=== PATIENT | male | born 1945 | race Two or more races ===

== ENCOUNTER 2024-01-12 10:27 | Inpatient (IN) | payer OTHER, MEDICAID ==
[~2024-01-12] VITALS: Ht 170.2 cm; Wt 63.1 kg
[2024-01-12 10:50] VITALS: PULSE 81; RESP 17; O2SAT 95
[2024-01-12 11:31] LABS: Basophils # (auto) 0 10 ^3/uL (0-0.2); Basophils % (auto) 0.2 % (0.0-2.0); Eosinophils # (auto) 0 10 ^3/uL (0-0.8); Eosinophils % (auto) 0.1 % (0.0-7.0); Hematocrit 41.5 % (41.0-53.0); Lymphocytes # (auto) 0.9 10 ^3/uL (0.4-5.4); Lymphocytes % (auto) 9.4 % (10.0-50.0); Mean Corpuscular Hemoglobin 29.7 pg (28.0-32.0); Mean Corpuscular Hgb Conc. 33.6 g/dL (32.0-36.0); Mean Corpuscular Volume 88.3 fL (80.0-100.0); Monocytes # (auto) 0.8 10 ^3/uL (0-1.3); Monocytes % (auto) 8.8 % (0.0-12.0); Neutrophils # (auto) 7.6 10 ^3/uL (1.6-8.6); Neutrophils % (auto) 81.5 % (37.0-80.0); Nucleated Red Blood Cells % 0.1 %; Red Blood Cells 4.69 10^6/uL (4.5-5.90); Red Cell Distribution Width 14.3 % (11.8-14.3); White Blood Cell 9.4 10^3/uL (4.4-10.8)
[2024-01-12 11:39] LABS: Chloride 99 mmol/L (98-107); Potassium 3.9 mmol/L (3.5-5.1); Sodium 137 mmol/L (136-145)
[2024-01-12 11:40] LABS: Anion Gap 10 (5-15); Carbon Dioxide 28 mmol/L (20-30)
[2024-01-12 11:45] LABS: Glucose 135 mg/dL (74-106)
[2024-01-12 11:46] LABS: BUN/Creatinine Ratio 26.6 (10.0-20.0); Blood Urea Nitrogen 25 mg/dL (9-23)
[2024-01-12 12:02] LABS: Calcium 15.4 mg/dL (8.5-10.1)
[2024-01-12] MEDS ORDERED: ACETAMINOPHEN 325 MG TAB PO PRN (16:30)
[2024-01-12] MEDS ORDERED: DEXTROSE (50%) 50ML SYRG IV PRN (16:30)
[2024-01-12] MEDS ORDERED: NITROGLYCERIN 0.4 MG SL TAB SL PRN (16:30)
[2024-01-12] MEDS: SODIUM CHLORIDE 0.9% 1,000 ML IV ONE (16:30)
[2024-01-12] MEDS ORDERED: MORPHINE SULFATE INJ 2 MG/ml SYRG IV PRN (16:30)
[2024-01-12] MEDS ORDERED: ENOXAPARIN SOD 100 MG/1 ML SYRINGE SC ONE (16:30)
[2024-01-12 16:48] LABS: Triglycerides 137 mg/dL (< 150)
[2024-01-12 16:49] LABS: LDL Cholesterol 33 mg/dL (< 100)
[2024-01-12 16:50] LABS: Cholesterol 87 mg/dL (< 200); HDL Cholesterol 29 mg/dL (40-59)
[2024-01-12] MEDS: ACCU-CHEK COMFORT CURVE STRIP VI SCH (17:00)
[2024-01-12] MEDS: InsuLIN REG 1unit/0.01ml Soln (100units/ml) SC SCH (17:00)
[2024-01-12 17:30] VITALS: BP 119/67; PULSE 93; RESP 16; TEMP 96.6; O2SAT 94
[2024-01-12] MEDS: SODIUM CHLORIDE 0.9% 500 ML IV ONE (17:30)
[2024-01-12 17:46] VITALS: BP 119/67; PULSE 93; RESP 16; RESP 18; TEMP 96.6; O2SAT 94
[2024-01-12] MEDS ORDERED: METF-372 PO (18:20)
[2024-01-12] MEDS ORDERED: LEVO200T7 PO (18:20)
[2024-01-12] MEDS ORDERED: EMPA1TAB3 PO (18:20)
[2024-01-12] MEDS: ASPirin 81 mg TAB PO ONE (18:22)
[2024-01-12] MEDS: ENOXAPARIN SOD 60 MG/0.6 ML SYRINGE SC ONE (18:22)
[2024-01-12] MEDS: SODIUM CHLORIDE 0.9% 1,000 ML IV SCH (18:24)
[2024-01-12] MEDS ORDERED: FURO1TAB31 PO (18:25)
[2024-01-12] MEDS ORDERED: ERGO1CAP12 PO (18:30)
[2024-01-12 20:00] VITALS: PULSE 86; PULSE 89; RESP 18
[2024-01-12 22:00] VITALS: BP 112/63; PULSE 86; RESP 20; TEMP 97.5; O2SAT 94
[2024-01-13] VITALS (7 sets, daily range): BP systolic 86–126; BP diastolic 55–65; PULSE 72–90; RESP 16–21; TEMP 97.4–98.4; O2SAT 92–97
[2024-01-13 05:08] LABS: Basophils # (auto) 0 10 ^3/uL (0-0.2); Basophils % (auto) 0.2 % (0.0-2.0); Eosinophils # (auto) 0 10 ^3/uL (0-0.8); Hematocrit 37.2 % (41.0-53.0); Hemoglobin 12.8 g/dL (13.5-17.5); Lymphocytes # (auto) 0.7 10 ^3/uL (0.4-5.4); Lymphocytes % (auto) 8.5 % (10.0-50.0); Mean Corpuscular Hemoglobin 30.4 pg (28.0-32.0); Mean Corpuscular Hgb Conc. 34.4 g/dL (32.0-36.0); Mean Corpuscular Volume 88.3 fL (80.0-100.0); Monocytes # (auto) 0.8 10 ^3/uL (0-1.3); Monocytes % (auto) 9.3 % (0.0-12.0); Nucleated Red Blood Cells % 0.1 %; Red Blood Cells 4.21 10^6/uL (4.5-5.90); Red Cell Distribution Width 14.5 % (11.8-14.3); White Blood Cell 8.5 10^3/uL (4.4-10.8)
[2024-01-13] MEDS: ENOXAPARIN SOD 60 MG/0.6 ML SYRINGE SC SCH (05:08)
[2024-01-13 05:18] LABS: Alanine Aminotransferase 24 U/L (7-40); Alkaline Phosphatase 202 U/L (46-116); Anion Gap 9 (5-15); Blood Urea Nitrogen 19 mg/dL (9-23); Carbon Dioxide 26 mmol/L (20-30); Chloride 102 mmol/L (98-107); Glucose 116 mg/dL (74-106); Potassium 3.6 mmol/L (3.5-5.1); Sodium 137 mmol/L (136-145)
[2024-01-13 05:19] LABS: Albumin 3.7 g/dL (3.2-4.8); Aspartate Aminotransferase 53 U/L (13-40); Bilirubin, Total 0.7 mg/dL (0.2-1.0); Total Protein 6.2 g/dL (5.7-8.2)
[2024-01-13] MEDS ORDERED: SIMV40TA18 PO (08:07)
[2024-01-13] MEDS: MAGNESIUM SULFATE 1GM/100ML 100 ML IV SCH (12:05)
[2024-01-13] MEDS: ASPirin 81 mg TAB PO SCH (12:05)
[2024-01-13] MEDS: PAMIDRONATE DISODIUM 90 MG in SOD CHL 0.45% 1,000 ML IV ONE (15:37)
[2024-01-13] MEDS: ATORVASTATIN 20 MG TAB PO SCH (21:21)
[2024-01-13] MEDS ORDERED: ATORVASTATIN 20 MG TAB PO SCH (22:00)
[2024-01-14] VITALS (8 sets, daily range): BP systolic 96–121; BP diastolic 30–66; PULSE 61–101; RESP 16–20; TEMP 97.5–98.5; O2SAT 95–98
[2024-01-14 06:24] LABS: Alanine Aminotransferase 23 U/L (7-40); Albumin 3.6 g/dL (3.2-4.8); Alkaline Phosphatase 198 U/L (46-116); Anion Gap 8 (5-15); Aspartate Aminotransferase 61 U/L (13-40); BUN/Creatinine Ratio 19.4 (10.0-20.0); Blood Urea Nitrogen 13 mg/dL (9-23); Carbon Dioxide 25 mmol/L (20-30); Chloride 103 mmol/L (98-107); Glucose 111 mg/dL (74-106); Potassium 3.4 mmol/L (3.5-5.1); Sodium 136 mmol/L (136-145)
[2024-01-14 06:25] LABS: Bilirubin, Total 0.7 mg/dL (0.2-1.0)
[2024-01-14 06:47] LABS: Calcium 14.9 mg/dL (8.7-10.4)
[2024-01-14] MEDS: FUROSEMIDE 40 MG TAB PO SCH (10:41)
[2024-01-14] MEDS: EMPAGLIFLOZIN 25 MG PO SCH (10:41)
[2024-01-14 13:01] LABS: Urine Bacteria NONE SEEN /hpf (None Seen); Urine Blood Negative /uL (Negative); Urine Clarity Clear (Clear); Urine Protein, UAD Negative (Negative); Urine Specific Gravity 1.011 (1.001-1.035); Urine Urobilinogen Normal (Negative); Urine WBC 4 /hpf (0 - 3); Urine pH 5.5 (5.0-8.0)
[2024-01-14 13:08] LABS: Urine Color Yellow (Yellow)
[2024-01-14] MEDS ORDERED: PAMIDRONATE DISODIUM 90 MG in SOD CHL 0.45% 1,000 ML IV ONE (17:30)
[2024-01-14] MEDS ORDERED: ZOLEDRONIC ACID 4 MG in SODIUM CHL 0.9% 100 ML IV ONE (17:45)
[2024-01-14] MEDS: ZOLEDRONIC ACID 4 MG in SODIUM CHL 0.9% 100 ML IV ONE (18:54)
[2024-01-14] MEDS: POTASSIUM CHL 20 Meq TABLET PO ONE (18:54)
[2024-01-14] MEDS: METOPROLOL TARTRATE 25 MG TAB PO SCH (22:00)
[2024-01-15] VITALS (9 sets, daily range): BP systolic 100–128; BP diastolic 51–74; PULSE 60–86; RESP 15–20; TEMP 36.4; O2SAT 94–95
[2024-01-15 05:57] LABS: Alanine Aminotransferase 23 U/L (7-40); Albumin 3.4 g/dL (3.2-4.8); Alkaline Phosphatase 205 U/L (46-116); Anion Gap 7 (5-15); Aspartate Aminotransferase 58 U/L (13-40); BUN/Creatinine Ratio 20.8 (10.0-20.0); Bilirubin, Total 0.6 mg/dL (0.2-1.0); Blood Urea Nitrogen 11 mg/dL (9-23); Carbon Dioxide 25 mmol/L (20-30); Chloride 109 mmol/L (98-107); Glucose 98 mg/dL (74-106); Magnesium 1.7 mg/dL (1.6-2.6); Potassium 3.2 mmol/L (3.5-5.1); Sodium 141 mmol/L (136-145)
[2024-01-15 05:58] LABS: Total Protein 5.8 g/dL (5.7-8.2)
[2024-01-15 06:35] LABS: Calcium 13.5 mg/dL (8.7-10.4)
[2024-01-15] MEDS ORDERED: CALCITONIN 400unit/2ml Vial (200unit/ml) SC SCH (10:00)
[2024-01-15] MEDS: EMPAGLIFLOZIN 10 MG TAB PO SCH (10:42)
[2024-01-15] MEDS: POTASSIUM CHL 20 Meq TABLET PO ONE (10:48)
[2024-01-15] MEDS ORDERED: GLIP10TA9 PO (13:09)
[2024-01-15] MEDS ORDERED: MELO15TA29 PO (13:09)
[2024-01-15] MEDS ORDERED: ASPI81CH74 PO (13:09)
[2024-01-16] MEDS ORDERED: LEVOTHYROXINE SODIUM 50 MCG TAB PO SCH (07:00)
[2024-01-16 08:06] LABS: PSA Free 0.19 ng/mL; Prostate Specific Antigen 0.9 ng/mL (0.0-4.0)
== END 2024-01-16 01:25 | disposition short-term general hospital (02) | DRG 280 ==
LOC: EDBD 10:27 → ER 10:27 → TELE 16:19 → TELE-CENTR 17:14
PROVIDERS: ADMIT Nurse Practitioner Family; ATTEND Internal Medicine
DX: I21.4 Non-ST elevation (NSTEMI) myocardial infarction (principal); G93.41 Metabolic encephalopathy; I50.23 Acute on chronic systolic (congestive) heart failure; C22.0 Liver cell carcinoma; E44.0 Moderate protein-calorie malnutrition; C78.00 Secondary malignant neoplasm of unspecified lung; E11.9 Type 2 diabetes mellitus without complications; E03.9 Hypothyroidism, unspecified; E83.52 Hypercalcemia; E78.5 Hyperlipidemia, unspecified; I11.0 Hypertensive heart disease with heart failure; I25.10 Atherosclerotic heart disease of native coronary artery without angina pectoris; I49.3 Ventricular premature depolarization; Z98.61 Coronary angioplasty status; Z85.05 Personal history of malignant neoplasm of liver; Z80.0 Family history of malignant neoplasm of digestive organs; Z88.0 Allergy status to penicillin; Z68.21 Body mass index [BMI] 21.0-21.9, adult
CPT/HCPCS: 36415; 71045; 80048; 80053; 80061; 81001; 82310; 82607; 82962; 83036; 83735; 83880; 83970; 84100; 84154; 84436; 84443; 84481; 84484; 85025; 87081; 93005; 93306; 97163; 99291; G0378; J1815; J3489

== ENCOUNTER 2024-01-22 11:27 | Emergency (ER) | payer OTHER, MEDICAID ==
[~2024-01-22] VITALS: Ht 170.2 cm; Wt 62.6 kg
[~2024-01-22 11:27] MED LIST: ASPI81CH74 PO; EMPA1TAB3 PO; ERGO1CAP12 PO; FURO1TAB31 PO; GLIP10TA9 PO; LEVO200T7 PO; MELO15TA29 PO; METF-372 PO; SIMV40TA18 PO
[2024-01-22] MEDS ORDERED: DOPamine 1600mCg/ml 400MG/250ml NSorD5 KIT/BAG IV ONE (11:28)
[2024-01-22 11:30] VITALS: PULSE 42; RESP 26; O2SAT 79
[2024-01-22] MEDS: SODIUM CHLORIDE 0.9% 1,000 ML IV ONE (11:40)
[2024-01-22] MEDS: DOPamine 1600MCG/ML D5W 250 ML IV SCH (11:43)
[2024-01-22] MEDS: NOREPINEPHRINE 8 MG/250ML KIT 250 ML IV ONE (11:44)
[2024-01-22 11:46] LABS: Mean Corpuscular Hemoglobin 29.2 pg (28.0-32.0); Mean Corpuscular Hgb Conc. 29.6 g/dL (32.0-36.0)
[2024-01-22 11:52] LABS: Hematocrit 37.3 % (41.0-53.0); Hemoglobin 11.1 g/dL (13.5-17.5); Mean Corpuscular Volume 98.4 fL (80.0-100.0); Red Blood Cells 3.79 10^6/uL (4.5-5.90); Red Cell Distribution Width 16.6 % (11.8-14.3)
[2024-01-22 11:59] LABS: Basophils % (manual) 0 (0.0-2.0); Blast Cells 0; Eosinophils % (manual) 0 (0-7); Promyelocytes % 0; Reactive Lymphocytes 0
[2024-01-22 12:02] LABS: Urine Bacteria MOD /hpf (None Seen); Urine Blood 1+ /uL (Negative); Urine Clarity HAZY (Clear); Urine Protein, UAD 1+ (Negative); Urine Specific Gravity 1.013 (1.001-1.035); Urine Sperm PRESENT /hpf (None Seen); Urine Urobilinogen Normal (Negative); Urine WBC 30 /hpf (0 - 3)
[2024-01-22 12:03] LABS: Urine Color Straw (Yellow)
[2024-01-22] MEDS: NOREPINEPHRINE 8 MG/250ML KIT 250 ML IV SCH (12:06)
[2024-01-22 12:07] VITALS: BP 89/50; PULSE 107; RESP 21; O2SAT 100
[2024-01-22] MEDS: ATROPINE SULF 1 MG/10ml SYR IV ONE (12:07)
[2024-01-22 12:13] LABS: Alanine Aminotransferase 880 U/L (7-40); Albumin 2.7 g/dL (3.2-4.8); Alkaline Phosphatase 245 U/L (46-116); Anion Gap 18 (5-15); BUN/Creatinine Ratio 18.6 (10.0-20.0); Bilirubin, Total 0.5 mg/dL (0.2-1.0); Blood Urea Nitrogen 22 mg/dL (9-23); Calcium 12.7 mg/dL (8.7-10.4); Carbon Dioxide 14 mmol/L (20-30); Chloride 123 mmol/L (98-107); Glucose 228 mg/dL (74-106); Magnesium 2.4 mg/dL (1.6-2.6); Potassium 3.7 mmol/L (3.5-5.1); Sodium 155 mmol/L (136-145); Total Protein 4.7 g/dL (5.7-8.2)
[2024-01-22 12:15] LABS: INR 1.7 (0.9-1.15); Prothrombin Time 17.2 sec (9.3-11.8)
[2024-01-22 12:24] LABS: Partial Thromboplastin Time 81.4 SEC (24.5-34.5)
[2024-01-22 12:32] LABS: Lactic Acid w/Reflex 10.1 mmol/L (0.4-2.0)
[2024-01-22 12:33] LABS: Band Neutrophils % (manual) 1; Lymphocytes % (manual) 45 (10.0-50.0); Metamyelocytes % 3; Monocytes % (manual) 4 (0-12); Myelocytes % 2; Platelet Estimate Adequate
[2024-01-22 12:45] VITALS: BP 117/69; PULSE 111; RESP 15; O2SAT 99
[2024-01-22] MEDS: cefTRIAXone 1GM/50ML D5W 50 ML IV ONE (12:45)
[2024-01-22] MEDS: fentaNYL Drip 2500mCg/250mlNS 250 ML IV SCH (12:45)
[2024-01-22] MEDS: VANCOMYCIN 1GM/200ML 200 ML IV ONE (12:45)
[2024-01-22] MEDS: SODIUM CHLORIDE 0.9% 1,900 ML IV ONE (12:59)
[2024-01-22 13:22] LABS: Base Excess -20.2 mmol/L (-2.0-2.0)
[2024-01-22] MEDS: SODIUM BICARB 8.4% 50Meq/50ml SYR Vial IV ONE ×2 (13:38)
== END 2024-01-22 14:11 ==
LOC: ER 11:27 → EDBD 11:27 → ER 14:11
DX: I46.9 Cardiac arrest, cause unspecified (principal); A41.9 Sepsis, unspecified organism; I10 Essential (primary) hypertension; Z85.9 Personal history of malignant neoplasm, unspecified; Z88.0 Allergy status to penicillin; Z79.899 Other long term (current) drug therapy
CPT/HCPCS: 31500; 36415; 36556; 36600; 70450; 71045; 80053; 81001; 82805; 83605; 83735; 84484; 85007; 85027; 85610; 85730; 87040; 87070; 87077; 87186; 87205; 92950; 93005; 96365; 96368; 99291; J0696; J1265; J3370; 94002